=== PATIENT | female | born 1950 | race Caucasian/White ===

== ENCOUNTER → 2018-06-05 14:14 | Outpatient (CLI) | payer MEDICARE, SELFPAY ==
[2018-06-05 15:00] LABS: Absolute Neutrophil Count 3.6 X10^3/uL (2.0-7.7); Eosinophils% 1.9 % (0-5); Hematocrit 40.8 % (37-47); Hemoglobin 13.5 g/dl (12.0-15.0); Lymphocyte % 20.8 % (19-41); Mean Corp Hgb Conc 33.1 g/gl (32-36); Mean Corpuscular Volume 90.7 fL (81-99); Mean Platelet Vol. 11.1 fl (6.2-12.0); Monocyte# 0.46 X10^3/uL; Monocyte% 8.7 % (0-10); Neutrophil # 3.64 X10^3/uL (2.7-7.7); Neutrophil % 68.6 % (47-70); POSITIVE COUNT NO; POSITIVE DIFFERENTIAL NO; POSITIVE MORPHOLOGY NO; Platelet Count 225 K/mm3 (150-450); RBC Distribution Width CV 12.3 % (11.6-14.6); White Blood Count 5.3 K/mm3 (4.4-11.0)
[2018-06-05 15:30] LABS: ALB/GLOB Ratio 1.2 RATIO (0.9-2.4); AST(SGOT) 20 U/L (15-37); Alanine Aminotransfer ALT/SGPT 33 U/L (13-56); Albumin, Serum 3.7 g/dL (3.2-5.0); Alkaline Phosphatase 78 U/L (45-117); Anion Gap 8 (5-15); BUN 18 mg/dL (7-18); BUN/Creat Ratio 23.6 RATIO (10-20); Calcium,Total 9.2 mg/dL (8.5-10.1); Chloride 106 mmol/L (98-107); Creatinine, Serum 0.76 mg/dL (0.55-1.02); EST Glomerular Filtration Rate 80 mL/min (>60); Est Glom Filt Rate - Afr Amer 97 mL/min (>60); Globulin 3.2 g/dL (2.2-4.2); Glucose 91 mg/dL (74-106); Potassium 4.1 mmol/L (3.5-5.1); Protein, Total 6.9 g/dL (6.4-8.2); Sodium Level 139 mmol/L (136-145); Thyroid Stim Hormone (TSH) 2.01 uIU/mL (0.358-3.74)
== END ==
PROVIDERS: Family Provider Family Medicine Geriatric Medicine; PCP Family Medicine Geriatric Medicine; Visit Provider Family Medicine Geriatric Medicine
DX: I10 Essential (primary) hypertension (principal); E55.9 Vitamin D deficiency, unspecified
CPT/HCPCS: 36415; 80053; 82306; 84443; 85025

== ENCOUNTER → 2019-06-14 | Outpatient (CLI) | payer MEDICARE, SELFPAY ==
--- NOTE | 2019-06-14 12:45 | BI_ITS ---
MAMMOGRAPHY - BILATERAL SCREENING REASON FOR EXAM: Female, 68 years old. Routine annual screening examination. PERTINENT HISTORY: Non-contributory. TECHNIQUE: Digital bilateral breast stella (3D mammographic acquisition) in the CC and MLO projections. 2-D mediolateral oblique (MLO) and craniocaudad (CC) views of both breasts were obtained. CAD: Full Field Digital Mammography with Computer Added Detection was performed. COMPARISON: Comparison is made with prior study June 04, 2015 and February 20, 2014. FINDINGS: Breast Composition: The breasts are almost entirely fatty. There are no dominant masses or suspicious calcifications. No other significant abnormalities are identified. There has been no significant change since the prior study. BI/SCREEN MAMM (CAD) W/STELLA BILAT IMPRESSION: Stable bilateral screening mammogram. Yearly follow-up mammogram recommended. (A) ASSESSMENT CATEGORY: BIRADS Category 1: Negative. A letter regarding these results will be sent to the patient by the facility within 30 days. Approximately 10% of breast cancers are not detected by mammography. A normal mammogram should not delay biopsy of a clinically suspicious abnormality. [id number] Electronically Signed: Baudilio Garcia, at 15:04 EDT , Service support ,
--- NOTE | 2019-06-14 12:55 | BD_ITS ---
STUDY: DUAL ENERGY X-RAY ABSORPTIOMETRY / DXA REASON FOR EXAM: Female, 68 years old. The patient is postmenopausal. Loss of height. TECHNIQUE: Bone Mineral Density (BMD) measurements of lumbar spine and bilateral hips were obtained. COMPARISON: Comparison is made with prior examination dated April 20, 2016. FINDINGS: Lumbar Spine (L1-L4): g/cm2 (1.046) / T-score (-1.1) / Z-score (0.5) Findings are suggestive of osteopenia with a low fracture risk. Left Femur Total: g/cm2 (0.818) / T-score (-1.5) / Z-score (-0.1) Left Femoral Neck: g/cm2 (0.815) / T-score (-1.6) / Z-score (0.1) Right Femur Total: g/cm2 (0.837) / T-score (-1.4) / Z-score (0.1) Right Femoral Neck: g/cm2 (0.866) / T-score (-1.2) / Z-score (0.4) The T-Scores on the most recent prior examination were: Lumbar Spine (L1-L4): There has been worsening of bone density since the previous examination. Left Femur Total: which represents a worsening of 7.6%. Right Femur Total: which represents a worsening of 3.6%. BD/Dexa Bone Density Study IMPRESSION: The patient is considered osteopenic as outlined below according to World Akin Organization (WHO) criteria with a moderate fracture risk. There has been worsening of bone density since the previous examination. Reference Information: The T-score is the number of standard deviations above or below the standard which is normal for young adults at their peak bone mineral density. The World Health Organization (WHO) interprets the T-scores as follows: Above -1 Normal bone density Between -1 and -2.5 Osteopenia Equal to / or below -2.5 Osteoporosis As a practical clinical guideline, osteopenia may be graded as follows: Mild -1 through -1.5 Moderate -1.6 through -2.0 Severe -2.1 through -2.4 The Z-score is the number of standard deviations above or below age-matched controls. A Z-score of less than -1.5 would be considered abnormal. References: 1. NIH Osteoporosis and Related Bone Diseases http://www.osteo.org 2. International Society for Clinical Densitometry http://www.iscd.org 3. National Osteoporosis Foundation http://www.nof.org Electronically Signed: Baudilio Garcia, at 8:22 EDT , Service support ,
== END | disposition home or self-care (01) ==
LOC: OPBD 12:42
PROVIDERS: Family Provider Family Medicine Geriatric Medicine; PCP Family Medicine Geriatric Medicine; Referring Provider Family Medicine Geriatric Medicine; Visit Provider Family Medicine Geriatric Medicine
DX: Z78.0 Asymptomatic menopausal state (principal); Z12.31 Encounter for screening mammogram for malignant neoplasm of breast
CPT/HCPCS: 77063; 77067; 77080

== ENCOUNTER → 2019-06-18 | Outpatient (CLI) | payer MEDICARE, SELFPAY ==
[2017-04-10 05:22] VITALS: BMI 32.3
[2019-06-18 17:47] LABS: Absolute Lymphocyte Count 0.76 X10^3/uL (0.83-4.51); Absolute Neutrophil Count 3.7 X10^3/uL (2.0-7.7); Basophil# 0.01 X10^3/uL; Basophil% 0.2 % (0-1); Hematocrit 42.9 % (37-47); Hemoglobin 13.9 g/dL (12.0-15.0); Lymphocyte # 0.76 X10^3/ul (4.0); Lymphocyte % 14.6 % (19-41); Mean Corp Hgb Conc 32.4 g/dL (32-36); Mean Corpuscular Hgb 29.7 pg (27.0-32.0); Mean Corpuscular Volume 91.7 fL (81-99); Mean Platelet Vol. 11.1 fl (6.2-12.0); Monocyte# 0.73 X10^3/uL; Monocyte% 14.1 % (0-10); NRBC Flagged by Analyzer 0 % (0-5); Neutrophil # 3.67 X10^3/uL (2.7-7.7); Neutrophil % 70.7 % (47-70); Platelet Count 227 K/mm3 (150-450); RBC Distribution Width CV 12.4 % (11.6-14.6); RBC Distribution Width SD 41.2 fl (35.1-43.9); Red Blood Count 4.68 M/mm3 (4.2-5.4); White Blood Count 5.2 K/mm3 (4.4-11.0)
[2019-06-18 18:12] LABS: Vitamin D,25 Hydroxy 35.4 ng/mL (29.95-100.01)
[2019-06-18 18:24] LABS: ALB/GLOB Ratio 1.1 RATIO (0.9-2.4); AST(SGOT) 19 U/L (15-37); Alanine Aminotransfer ALT/SGPT 32 U/L (13-56); Albumin, Serum 3.8 g/dL (3.2-5.0); Alkaline Phosphatase 82 U/L (45-117); Anion Gap 6 (5-15); BUN 13 mg/dL (7-18); BUN/Creat Ratio 17.9 RATIO (10-20); Calcium,Total 9.5 mg/dL (8.5-10.1); Chloride 107 mmol/L (98-107); Creatinine, Serum 0.72 mg/dL (0.55-1.02); EST Glomerular Filtration Rate 85 mL/min (>60); Est Glom Filt Rate - Afr Amer 102 mL/min (>60); Globulin 3.5 g/dL (2.2-4.2); Glucose 81 mg/dL (74-106); Protein, Total 7.3 g/dL (6.4-8.2); Sodium Level 138 mmol/L (136-145); Thyroid Stim Hormone (TSH) 2.13 uIU/mL (0.358-3.74)
== END | disposition home or self-care (01) ==
LOC: POLAB3 14:01
PROVIDERS: Family Provider Family Medicine Geriatric Medicine; PCP Family Medicine Geriatric Medicine; Visit Provider Family Medicine Geriatric Medicine
DX: I10 Essential (primary) hypertension (principal); E55.9 Vitamin D deficiency, unspecified
CPT/HCPCS: 36415; 80053; 82306; 84443; 85025

== ENCOUNTER → 2020-06-23 | Outpatient (CLI) | payer MEDICARE, SELFPAY ==
[2017-04-10 05:22] VITALS: BMI 32.3
[2020-06-23 12:31] LABS: Absolute Lymphocyte Count 0.94 X10^3/uL (0.83-4.51); Absolute Neutrophil Count 3.4 X10^3/uL (2.0-7.7); Basophil# 0.01 X10^3/uL; Basophil% 0.2 % (0-1); Hematocrit 41.6 % (37-47); Hemoglobin 13.2 g/dL (12.0-15.0); Lymphocyte # 0.94 X10^3/ul (4.0); Lymphocyte % 18.7 % (19-41); Mean Corp Hgb Conc 31.7 g/dL (32-36); Mean Corpuscular Hgb 29.3 pg (27.0-32.0); Mean Corpuscular Volume 92.2 fL (81-99); Mean Platelet Vol. 11.3 fl (6.2-12.0); Monocyte# 0.64 X10^3/uL; Monocyte% 12.7 % (0-10); NRBC Flagged by Analyzer 0 % (0-5); Neutrophil # 3.43 X10^3/uL (2.7-7.7); Neutrophil % 68.2 % (47-70); Platelet Count 218 K/mm3 (150-450); RBC Distribution Width SD 41.3 fl (35.1-43.9); Red Blood Count 4.51 M/mm3 (4.2-5.4)
[2020-06-23 13:35] LABS: ALB/GLOB Ratio 1.1 RATIO (0.9-2.4); AST(SGOT) 17 U/L (15-37); Alanine Aminotransfer ALT/SGPT 24 U/L (13-56); Albumin, Serum 3.6 g/dL (3.2-5.0); Alkaline Phosphatase 67 U/L (45-117); Anion Gap 8 (5-15); BUN 20 mg/dL (7-18); BUN/Creat Ratio 23.7 RATIO (10-20); Calcium,Total 9.8 mg/dL (8.5-10.1); Chloride 110 mmol/L (98-107); Creatinine, Serum 0.84 mg/dL (0.55-1.02); EST Glomerular Filtration Rate 71 mL/min (>60); Est Glom Filt Rate - Afr Amer 86 mL/min (>60); Globulin 3.4 g/dL (2.2-4.2); Glucose 90 mg/dL (74-106); Potassium 4.2 mmol/L (3.5-5.1); Sodium Level 142 mmol/L (136-145); Thyroid Stim Hormone (TSH) 3.21 uIU/mL (0.358-3.74)
[2020-06-23 17:33] LABS: BNP,B-Type NATRIURETIC PEPTIDE 64.9 pg/mL (0-100)
[2020-06-23 17:39] LABS: Vitamin D,25 Hydroxy 26.6 ng/mL
[2020-06-25 15:12] LABS: G6PD Quant Test 250 (127-427)
== END | disposition home or self-care (01) ==
LOC: POLAB3 09:50
PROVIDERS: PCP Family Medicine Geriatric Medicine; Visit Provider Family Medicine Geriatric Medicine
DX: E55.9 Vitamin D deficiency, unspecified (principal); I10 Essential (primary) hypertension; E66.9 Obesity, unspecified; M62.81 Muscle weakness (generalized); R53.82 Chronic fatigue, unspecified; R68.82 Decreased libido
CPT/HCPCS: 36415; 80053; 82306; 82955; 83880; 84443; 85025

== ENCOUNTER → 2020-07-07 | Outpatient (CLI) | payer MEDICARE, SELFPAY | END | disposition home or self-care (01) | PROVIDERS: PCP Family Medicine Geriatric Medicine; Referring Provider Family Medicine Geriatric Medicine; Visit Provider Family Medicine Geriatric Medicine | DX: N39.0 Urinary tract infection, site not specified (principal) | CPT/HCPCS: 87086; 87088 ==

== ENCOUNTER → 2020-12-10 11:42 | Outpatient (CLI) | payer MEDICARE, SELFPAY ==
[2017-04-10 05:22] VITALS: BMI 32.3
[2020-12-10 12:45] LABS: Absolute Neutrophil Count 4.1 X10^3/uL (2.0-7.7); Basophil# 0.01 X10^3/uL; Basophil% 0.2 % (0-1); Hematocrit 44.6 % (37-47); Hemoglobin 14.2 g/dL (12.0-15.0); Mean Corp Hgb Conc 31.8 g/dL (32-36); Mean Corpuscular Hgb 29.2 pg (27.0-32.0); Mean Corpuscular Volume 91.6 fL (81-99); Monocyte% 11.1 % (0-10); NRBC Flagged by Analyzer 0 % (0-5); Neutrophil # 4.07 X10^3/uL (2.7-7.7); Neutrophil % 75.5 % (47-70); Platelet Count 209 K/mm3 (150-450); RBC Distribution Width CV 12.9 % (11.6-14.6); RBC Distribution Width SD 43.7 fl (35.1-43.9); Red Blood Count 4.87 M/mm3 (4.2-5.4); White Blood Count 5.4 K/mm3 (4.4-11.0)
[2020-12-10 13:00] LABS: Anion Gap 7 (5-15); BUN 10 mg/dL (7-18); BUN/Creat Ratio 15.6 RATIO (10-20); Calcium,Total 9.9 mg/dL (8.5-10.1); Chloride 107 mmol/L (98-107); Creatinine, Serum 0.64 mg/dL (0.55-1.02); EST Glomerular Filtration Rate 97 mL/min (>60); Est Glom Filt Rate - Afr Amer 117 mL/min (>60); Glucose 100 mg/dL (74-106); Potassium 3.9 mmol/L (3.5-5.1); Sodium Level 137 mmol/L (136-145)
== END ==
PROVIDERS: PCP Family Medicine Geriatric Medicine; Visit Provider Family Medicine Geriatric Medicine
DX: N20.0 Calculus of kidney (principal)
CPT/HCPCS: 36415; 80048; 85025; 87086

== ENCOUNTER → 2020-12-10 15:32 | Outpatient (CLI) | payer MEDICARE, SELFPAY ==
--- NOTE | 2020-12-10 15:47 | CT_ITS ---
STUDY: CT ABDOMEN AND PELVIS WITHOUT CONTRAST REASON FOR EXAM: Female, 70 years old. KIDNEY STONE RADIATION DOSAGE (If Supplied By Facility): CTDIvol = ( 9.03 ) mGy, DLP = ( 425.77 ) mGycm TECHNIQUE: Transaxial images were obtained from the dome of the diaphragm to the symphysis pubis without oral contrast, and without intravenous contrast. Sagittal and coronal images were reconstructed. Individualized dose optimization techniques were used for this CT. COMPARISON: None. FINDINGS: The visualized lung bases are unremarkable. Mild pericardial thickening. Normal liver. Cholelithiasis. No significant dilatation of the extrahepatic biliary system. Normal spleen. Normal pancreas. Normal bilateral adrenal glands. Punctate stone and multiple probable parapelvic cysts in the right kidney. Hydronephrosis of the left kidney with calculi. There is an obstructive stone at the left UPJ measuring 14 mm in maximum dimension. Possible parapelvic left renal cysts. There is a hiatal hernia. Normal small intestine. Diverticulosis of the colon. The appendix is visualized and appears normal. Calcified abdominal aorta. Normal inferior vena cava. Normal retroperitoneum. Mild wall thickening of the urinary bladder anteriorly. Normal abdominal wall. Mild degenerative vertebral changes with scoliosis. Mild compression of T11. CT/Abdomen/Pelvis without Cont IMPRESSION: Bilateral renal calculi and cysts. Hydronephrosis of the left kidney with an obstructive stone at the UPJ. Hiatal hernia. Colonic diverticulosis. Cholelithiasis. Mild pericardial thickening. Mild wall thickening of the urinary bladder. Electronically Signed: Yoshi Malhotra DO at 16:37 EDT Tel [phone], Service support ,
== END ==
PROVIDERS: PCP Family Medicine Geriatric Medicine; Referring Provider Family Medicine Geriatric Medicine; Visit Provider Family Medicine Geriatric Medicine
DX: N20.0 Calculus of kidney (principal); N39.0 Urinary tract infection, site not specified
CPT/HCPCS: 36415; 74176; 80048; 85025; 87086; 87088

== ENCOUNTER 2020-12-19 11:46 | Day surgery (SDC) | payer MEDICARE, SELFPAY ==
[2020-12-19] VITALS (7 sets, daily range): BP systolic 115–147; BP diastolic 60–77; PULSE 53–65; RESP 16; TEMP 36.5–37.5; O2SAT 100; BMI 25.2
[2020-12-19] MEDS: Lactated Ringers 1,000 ML 100 ML IV (12:36)
--- NOTE | 2020-12-19 13:45 | PCM.HP.STD ---
Problem List (1) Left ureteral calculus Status: Acute History of Present Illness Date of Admission: 12/19/20 Chief Complaint: Left ureteral calculi The patient is a 70 year old female with obstructing stone in the mid left ureter plan to proceed with shockwave lithotripsy and stent placement Past Medical History Allergies Sulfa (Sulfonamide Antibiotics) Allergy (Verified 12/19/20 12:36) Hives Ceomtdz-Abg-Whv Reductase Inhibitor Adverse Reaction (Verified 12/19/20 12:36) Pain in joints Home Medications: Ambulatory Orders Medication Instructions Recorded Atenolol 50 mg PO BID 04/10/17 Naproxen [Naprosyn] 500 mg PO BID PRN 12/17/20 Surgical History: no surgical history Smoking Status: Former smoker Review of Systems Constitutional: Denies: Chills, Fever, Weight Change HEENT: Denies: Head Aches, Sinus Congestion, Sinus Drainage Cardiovascular: Denies: Chest Pain, Palpitations Respiratory: Denies: Cough, Shortness of breath at rest, Sputum production Gastrointestinal: Denies: Abdominal Pain, Nausea, Vomiting Genitourinary: Denies: Dysuria Musculoskeletal: Denies: Joint Pain, Joint Tenderness Skin: Denies: Rash, Wounds Neurological: Denies: Numbness, Tingling, Focal weakness Psychiatric: Denies: Anxiety, Depression, Homicidal Ideations, Suicidal Ideations Hematologic/ Lymphatic: Denies: Easy Bruising, Easy Bleeding VTE Information - Inpt Only VTE Present on Admission: No - Physical Exam Vitals/I&O's: Vital Signs Temp Pulse Resp BP Pulse Ox 98.5 F 62 16 132/73 H 100 12/19/20 12:31 12/19/20 12:31 12/19/20 12:31 12/19/20 12:31 12/19/20 12:31 Oxygen Delivery Method Room Air Weight: 71 kg Body Mass Index (BMI) 25.2 General: Alert, Oriented x3, Cooperative HEENT: Atraumatic, PERRLA, EOMI, Normocephalic Neck: Supple, No JVD, Negative Carotid Bruits Lungs: Clear to auscultation, Normal air movement Cardiovascular: Regular rate, No murmurs Abdomen: Bowel Sounds Present, Soft, Non Tender Extremities: No edema, Capillary Refill Less than 3 Seconds Skin: No rashes, No breakdown Musculoskeletal: No Tenderness to Palpation of Joints or Extremities Neurological: Cranial nerves II-XII grossly intact Psych/Mental Status: Normal Affect, Appropriate Microbiology Past 72 Hours 12/18/20 13:05 Interface Orders SARS-CoV-2 Antigen (Rapid) - Final Current Medications Cefazolin Sodium 2 gm/ Sodium (Chloride) 110 mls @ 150 mls/hr IV PREOP ONE Stop: 12/19/20 14:38 Lactated Ringer's () 1,000 mls @ 100 mls/hr IV .Q10H SAY Last Admin: 12/19/20 12:36 Dose: 100 mls/hr Documented by: Assessment/Plan All Active Problems Left ureteral calculus (Acute) Plan for shockwave lithotripsy and left stent placement.
--- NOTE | 2020-12-19 13:49 | DCINST_ITS ---
Discharge Diet: Light diet - advance as tolerated Discharge Activity: Return to Normal Activity Allergies/Adverse Reactions: Allergies Sulfa (Sulfonamide Antibiotics) Allergy (Verified 12/19/20 12:36) Hives Mrqzfgz-Oee-Alk Reductase Inhibitor Adverse Reaction (Verified 12/19/20 12:36) Pain in joints Medications to take at Discharge Atenolol 50 mg PO BID 04/10/17 Naproxen [Naprosyn] 500 mg PO BID PRN 12/17/20 Ciprofloxacin [Cipro] 500 mg PO BID #6 tab 12/19/20 Hydrocodone Bitart/Apap 5-325 [[place] 5MG-325MG] 1 tablet PO Q4H PRN PRN 7 Days #14 tablet 12/19/20 The following prescriptions were given: Ciprofloxacin [Cipro] 500 mg PO BID #6 tab Transmission Status: Pending to [facility] Hydrocodone Bitart/Apap 5-325 [[place] 5MG-325MG] 1 tablet PO Q4H PRN PRN 7 Days #14 tablet PRN Reason: Pain Transmission Status: Sent to [facility] Primary Care Physician: Varun Ceballos Chi, MD [Primary Care Provider] - Test Results: Test results from this visit will be discussed in further detail at your follow- up appointment, if applicable. Please Follow Up With: Jhoan Amezcua MD When: please call to make an appointment.
[2020-12-19] MEDS: Cefazolin 2 GM in 0.9% Normal Saline 100 ML IV (13:55)
[2020-12-19] MEDS: Ketorolac 15 MG/ML Vial IV (15:05)
--- NOTE | 2020-12-19 15:24 | OP.PCM_ITS ---
Problem List (1) Left ureteral calculus Status: Acute Report of Operation Date of Procedure: 12/19/20 Pre-Operative Diagnosis: left renal calculi Post-Operative Diagnosis: same. Surgery/Procedure Performed:: cystoscopy and left stent placement., left ESWL Description of Surgical Findings:: Patient presents to the hospital for treatment of a kidney stone with shockwave lithotripsy. In the preoperative area and x-ray was done to confirm the location of the stone. The x-ray was reviewed and the stone location was reviewed. In the preoperative setting I spoke with the patient regarding the treatment of the stone how the treatment would be conducted and the expectations after surgery. The patient understands there is a risk of bleeding and infection. Also discussed the very rare risk of hematoma or damage to the kidney. We also discussed the risk that the shockwave machine will fail to break the stone adequately and that the patient may need other surgical procedures. We also discussed the possibility that the patient may need a stent after the procedure. After reviewing the procedure with the patient, the patient is signed the consent form all the patient's questions were addressed and was taken back to the operating room for treatment of a kidney stone. Patient was taken back to the operating room, patient was identified by the nursing staff, we identified the side of the treatment and the patient side of treatment had been marked by my initials. The patient underwent general anesthetic and was placed supine on the lithotripter table. The patient was placed in dorsolithotomy position. The urethra and genitals were prepped and draped in usual sterile fashion. Using a 21 Mongolian rigid cystourethroscope the entire length of the urethra was normal then went into the bladder. Identified the trigone the left and right ureteral orifice. I then cannulated the left orifice and advanced a wire up into the kidney. I then backloaded a 5 Mongolian open ended catheter over the wire and injected contrast to delineate the anatomy. After the retrograde was performed I then used fluoroscopic images and guidance to advanced a wire up into the kidney and over the 0.038 glidewire I advanced a 6 Mongolian by 24 cm double pigtail stent. I then pulled the 0.038 Glidewire off and the stent coiled in the kidney bladder good position. The bladder was then drained. We confirmed the position of the stent by fluoroscopy. We then positioned the patient under the lithotripter and we used triangulation technique to identify the location of the stone and then we made sure that the stone was engaged in the F2 focal point of F2 Donier lithoprior machine. Once the patient was positioned appropriately and the stone was identified and placed in the F2 focal point of the lithotripter machine we then proceeded with shockwave lithotripsy. In the beginning the shockwave was delivered at a rate of 90 shocks per minute, we monitor the EKG for any ectopy. The power was slowly increased to 5 kV and subsequently at the 7 kV. We then proceeded with the treatment we move the therapy had around during the treatment to make sure the stone stayed in the F2 focal point during the entire treatment. Once the stone had broken up completely then we stopped the treatment a total of about 3000 shockwaves were delivered to the stone under fluoroscopic guidance. At this point the patient's anesthetic was reversed patient was extubated and taken back to the PACU in stable condition. The patient was given instructions to call the office to make an a follow-up appointment. Type of Anesthesia:: General - Admit VTE Documentation VTE Present on Admission: No VTE Mechan Device Prophylaxis: SCD's
[2020-12-19] MEDS: HYDROcodone Bitartrate/Apap 5/325 Tablet PO (16:20)
[2020-12-19] MEDS: Ondansetron 4 MG/2 ML Vial IV (16:20)
== END 2020-12-19 17:08 | disposition home or self-care (01) ==
LOC: SDC 11:47 → AC 11:48
PROVIDERS: PCP Family Medicine Geriatric Medicine; Referring Provider Urology; Visit Provider Urology
PROC: (CPT 50590; principal; 2020-12-19 13:45)
DX: N20.0 Calculus of kidney (principal); I10 Essential (primary) hypertension; Z87.891 Personal history of nicotine dependence; Z79.899 Other long term (current) drug therapy; Z20.822 Contact with and (suspected) exposure to COVID-19
CPT/HCPCS: 00873; 50590; 52332; 87426; C9803; J7120; C1769; C2617; J2405

== ENCOUNTER → 2020-12-25 08:49 | Outpatient (CLI) | payer MEDICARE, SELFPAY ==
[2020-12-19 12:31] VITALS: BMI 25.2
--- NOTE | 2020-12-25 08:52 | RAD_ITS ---
STUDY: X-RAY - ABDOMEN/PELVIS REASON FOR EXAM: Female, 70 years old. S/p ESWL TECHNIQUE: Single AP view of the abdomen / pelvis. COMPARISON: None. FINDINGS: Normal visualized lung bases. There is an unremarkable bowel gas pattern. A left-sided double-J stent catheter is seen with the proximal tip in the left renal pelvis and the distal tip in the left side of the bladder. Findings suggestive of a 5.7 mm conquest in the midportion of the left kidney. Normal soft tissue structures. There are diffuse degenerative changes of the visualized lumbar spine. Mild dextroscoliosis. RAD/Abdomen Single View IMPRESSION: A left-sided double-J stent catheter is seen. Findings suggestive of a 5.7 mm calculus in the midportion of the left kidney. Electronically Signed: Baudilio Garcia MD at 12:54 EDT , Service support ,
== END ==
PROVIDERS: PCP Family Medicine Geriatric Medicine; Referring Provider Urology; Visit Provider Urology
DX: N20.0 Calculus of kidney (principal); N20.1 Calculus of ureter
CPT/HCPCS: 74018; 82360

== ENCOUNTER → 2020-12-30 | Outpatient (CLI) | payer MEDICARE, SELFPAY ==
[2020-12-19 12:31] VITALS: BMI 25.2
== END | disposition home or self-care (01) ==
LOC: LABSPEC 12:13
PROVIDERS: PCP Family Medicine Geriatric Medicine; Referring Provider Urology; Visit Provider Urology
DX: R19.7 Diarrhea, unspecified (principal)
CPT/HCPCS: 87493

== ENCOUNTER → 2021-01-08 11:48 | Outpatient (CLI) | payer MEDICARE, SELFPAY ==
[2020-12-19 12:31] VITALS: BMI 25.2
--- NOTE | 2021-01-08 12:00 | RAD_ITS ---
STUDY: X-RAY - ABDOMEN/PELVIS REASON FOR EXAM: Female, 70 years old. Diarrhea for 10 days. TECHNIQUE: Single AP view of the abdomen / pelvis. COMPARISON: None. FINDINGS: Normal visualized lung bases. There is an unremarkable bowel gas pattern. No evidence of small bowel dilatation or obstruction There is no demonstrated free abdominal air. The visualized liver, spleen and kidneys are grossly normal in size and morphology. There are calcified phleboliths in the pelvis. . Degenerative changes and dextroscoliosis of the lumbar spine. RAD/Abd Inc Decub and/or Erect IMPRESSION: No evidence of acute intra-abdominal or pelvic process. Electronically Signed: Michael Castro DO at 22:34 EDT Tel [phone], Service support ,
== END ==
PROVIDERS: PCP Family Medicine Geriatric Medicine; Referring Provider Family Medicine Geriatric Medicine; Visit Provider Family Medicine Geriatric Medicine
DX: R19.7 Diarrhea, unspecified (principal)
CPT/HCPCS: 74019

== ENCOUNTER → 2021-01-09 | Outpatient (CLI) | payer MEDICARE, SELFPAY ==
[2020-12-19 12:31] VITALS: BMI 25.2
== END | disposition home or self-care (01) ==
LOC: LAB 08:58 → LABSPEC 09:01
PROVIDERS: PCP Family Medicine Geriatric Medicine; Referring Provider Family Medicine Geriatric Medicine; Visit Provider Family Medicine Geriatric Medicine
DX: R19.7 Diarrhea, unspecified (principal)
CPT/HCPCS: 82274; 83630; 87177; 87209; 87493; 87506

== ENCOUNTER → 2021-01-19 15:09 | Outpatient (CLI) | payer MEDICARE, SELFPAY ==
[2020-12-19 12:31] VITALS: BMI 25.2
--- NOTE | 2021-01-19 15:11 | BI_ITS ---
MAMMOGRAPHY - BILATERAL SCREENING REASON FOR EXAM: Female, 70 years old. Routine annual screening examination. PERTINENT HISTORY: Non-contributory. TECHNIQUE: Digital bilateral breast stella (3D mammographic acquisition) in the CC and MLO projections. 2-D mediolateral oblique (MLO) and craniocaudad (CC) views of both breasts were obtained. CAD: Full Field Digital Mammography with Computer Added Detection was performed. COMPARISON: Comparison is made with prior study dated 06/14/2019 and 06/04/2015. FINDINGS: Breast Composition: The breasts are almost entirely fatty. There are no dominant masses or suspicious calcifications. No other significant abnormalities are identified. There has been no significant change since the prior study. BI/SCRN MAMM (CAD)W/STELLA BILAT IMPRESSION: Stable bilateral screening mammogram. Yearly follow-up mammogram recommended. (A) ASSESSMENT CATEGORY: BIRADS Category 1: Negative. A letter regarding these results will be sent to the patient by the facility within 30 days. Approximately 10% of breast cancers are not detected by mammography. A normal mammogram should not delay biopsy of a clinically suspicious abnormality. [id number] Electronically Signed: Baudilio Garcia MD at 8:15 EDT , Service support ,
== END ==
PROVIDERS: PCP Family Medicine Geriatric Medicine; Referring Provider Family Medicine Geriatric Medicine; Visit Provider Family Medicine Geriatric Medicine
DX: Z12.31 Encounter for screening mammogram for malignant neoplasm of breast (principal)
CPT/HCPCS: 77063; 77067

== ENCOUNTER → 2021-02-09 | Outpatient (CLI) | payer MEDICARE, SELFPAY ==
[2020-12-19 12:31] VITALS: BMI 25.2
== END | disposition home or self-care (01) ==
LOC: LABSPEC 08:39
PROVIDERS: PCP Family Medicine Geriatric Medicine; Referring Provider Family Medicine Geriatric Medicine; Visit Provider Family Medicine Geriatric Medicine
DX: K92.1 Melena (principal)
CPT/HCPCS: 82274

== ENCOUNTER → 2021-02-13 14:38 | Outpatient (CLI) | payer MEDICARE, SELFPAY ==
[2020-12-19 12:31] VITALS: BMI 25.2
--- NOTE | 2021-02-13 14:45 | CT_ITS ---
STUDY: CT ABDOMEN AND PELVIS WITHOUT CONTRAST REASON FOR EXAM: Female, 70 years old. Recent lithotripsy of the left ureter. Pain. RADIATION DOSAGE (If Supplied By Facility): CTDIvol = ( 6.87 ) mGy, DLP = ( 329.75 ) mGycm TECHNIQUE: Transaxial images were obtained from the dome of the diaphragm to the symphysis pubis without oral contrast, and without intravenous contrast. Sagittal and coronal images were reconstructed. Individualized dose optimization techniques were used for this CT. COMPARISON: Comparison is made with prior examination of 12/10/2020. FINDINGS: The visualized lung bases are unremarkable. Coronary artery calcification. Minimal degree of pericardial thickening. This is unchanged. Normal liver. I suspect a small amount of sludge along the dependent portion of the gallbladder lumen. Normal spleen. Normal pancreas. Normal bilateral adrenal glands. Stable right lateral parapelvic cysts. The previously seen 14 mm calculus at the left ureteropelvic junction is not seen at this time. There is a moderate hiatal hernia. Normal small intestine. There are multiple colonic diverticula consistent with diverticulosis. The appendix is visualized and appears normal. There is diffuse atherosclerotic calcification of the abdominal aorta, without a demonstrated aneurysm. Normal inferior vena cava. Normal retroperitoneum. Diffuse bladder wall thickening more prominent anteriorly although the bladder is not completely distended at this time. Normal abdominal wall. There are mild degenerative changes of the visualized lumbar spine. Stable loss of height of the T11 vertebrae. CT/Abdomen/Pelvis without Cont IMPRESSION: Stable bilateral parapelvic cysts. The previously seen calculus in the left ureteropelvic junction is not seen at this time. Electronically Signed: Baudilio Garcia MD at 15:07 EDT , Service support ,
== END ==
PROVIDERS: PCP Family Medicine Geriatric Medicine; Referring Provider Urology; Visit Provider Urology
DX: N20.1 Calculus of ureter (principal)
CPT/HCPCS: 74176

== ENCOUNTER → 2021-06-24 09:58 | Outpatient (CLI) | payer MEDICARE, SELFPAY ==
[2021-06-24 12:16] LABS: Absolute Lymphocyte Count 0.88 X10^3/uL (0.83-4.51); Absolute Neutrophil Count 3.5 X10^3/uL (2.0-7.7); Hematocrit 42.1 % (37-47); Hemoglobin 13.8 g/dL (12.0-15.0); Lymphocyte # 0.88 X10^3/ul (0.83-4.51); Lymphocyte % 17.9 % (19-41); Mean Corp Hgb Conc 32.8 g/dL (32-36); Mean Corpuscular Hgb 29.9 pg (27.0-32.0); Mean Corpuscular Volume 91.3 fL (81-99); Mean Platelet Vol. 11.2 fl (6.2-12.0); Monocyte% 10.2 % (0-10); NRBC Flagged by Analyzer 0 % (0-5); Neutrophil # 3.52 X10^3/uL (2.7-7.7); Neutrophil % 71.7 % (47-70); Platelet Count 232 K/mm3 (150-450); RBC Distribution Width CV 12.1 % (11.6-14.6); RBC Distribution Width SD 40.5 fl (35.1-43.9); Red Blood Count 4.61 M/mm3 (4.2-5.4); White Blood Count 4.9 K/mm3 (4.4-11.0)
[2021-06-24 13:21] LABS: Vitamin D,25 Hydroxy 31.8 ng/mL
[2021-06-24 13:27] LABS: ALB/GLOB Ratio 0.9 RATIO (0.9-2.4); AST(SGOT) 19 U/L (15-37); Alanine Aminotransfer ALT/SGPT 22 U/L (13-56); Albumin, Serum 3.4 g/dL (3.2-5.0); Alkaline Phosphatase 72 U/L (45-117); Anion Gap 10 (5-15); BUN 14 mg/dL (7-18); BUN/Creat Ratio 17.9 RATIO (10-20); Calcium,Total 9.3 mg/dL (8.5-10.1); Chloride 110 mmol/L (98-107); Creatinine, Serum 0.78 mg/dL (0.55-1.02); EST Glomerular Filtration Rate 77 mL/min (>60); Est Glom Filt Rate - Afr Amer 93 mL/min (>60); Globulin 3.6 g/dL (2.2-4.2); Glucose 88 mg/dL (74-106); Potassium 4.2 mmol/L (3.5-5.1); Sodium Level 141 mmol/L (136-145); Thyroid Stim Hormone (TSH) 2.67 uIU/mL (0.358-3.74)
== END ==
PROVIDERS: PCP Family Medicine Geriatric Medicine; Visit Provider Family Medicine Geriatric Medicine
DX: E55.9 Vitamin D deficiency, unspecified (principal); I10 Essential (primary) hypertension
CPT/HCPCS: 36415; 80053; 82306; 84443; 85025

== ENCOUNTER → 2022-06-30 | Outpatient (CLI) | payer MEDICARE, SELFPAY ==
[2022-06-30 11:27] LABS: Absolute Lymphocyte Count 0.93 X10^3/uL (0.83-4.51); Absolute Neutrophil Count 2.7 X10^3/uL (2.0-7.7); Hematocrit 41.5 % (37-47); Hemoglobin 14.2 g/dL (12.0-15.0); Lymphocyte # 0.93 X10^3/ul (0.83-4.51); Mean Corp Hgb Conc 34.2 g/dL (32-36); Mean Corpuscular Hgb 30.7 pg (27.0-32.0); Mean Corpuscular Volume 89.6 fL (81-99); Mean Platelet Vol. 11.6 fl (6.2-12.0); Monocyte# 0.44 X10^3/uL; Monocyte% 10.9 % (0-10); NRBC Flagged by Analyzer 0 % (0-5); Neutrophil # 2.66 X10^3/uL (2.7-7.7); Neutrophil % 65.9 % (47-70); Platelet Count 196 K/mm3 (150-450); RBC Distribution Width SD 39.4 fl (35.1-43.9); Red Blood Count 4.63 M/mm3 (4.2-5.4)
[2022-06-30 11:42] LABS: Vitamin D,25 Hydroxy 40.4 ng/mL
[2022-06-30 11:50] LABS: ALB/GLOB Ratio 1.1 RATIO (0.9-2.4); AST(SGOT) 19 U/L (15-37); Alanine Aminotransfer ALT/SGPT 26 U/L (13-56); Albumin, Serum 3.6 g/dL (3.2-5.0); Alkaline Phosphatase 69 U/L (45-117); Anion Gap 7 (5-15); BUN 16 mg/dL (7-18); BUN/Creat Ratio 19.6 RATIO (10-20); Calcium,Total 9.4 mg/dL (8.5-10.1); Chloride 111 mmol/L (98-107); Creatinine, Serum 0.82 mg/dL (0.55-1.02); EST Glomerular Filtration Rate 73 mL/min (>60); Est Glom Filt Rate - Afr Amer 88 mL/min (>60); Globulin 3.3 g/dL (2.2-4.2); Glucose 107 mg/dL (74-106); Potassium 4.1 mmol/L (3.5-5.1); Protein, Total 6.9 g/dL (6.4-8.2); Sodium Level 141 mmol/L (136-145); Thyroid Stim Hormone (TSH) 3.42 uIU/mL (0.358-3.74)
== END | disposition home or self-care (01) ==
LOC: POLAB3 09:38
PROVIDERS: PCP Family Medicine Geriatric Medicine; Visit Provider Family Medicine Geriatric Medicine
DX: I10 Essential (primary) hypertension (principal); E55.9 Vitamin D deficiency, unspecified
CPT/HCPCS: 36415; 80053; 82306; 84443; 85025

== ENCOUNTER 2023-01-31 09:05 | Emergency (ER) | payer MEDICARE, SELFPAY ==
[2023-01-31 09:05] VITALS: BP 156/88; PULSE 68; RESP 16; TEMP 36.4; O2SAT 100; BMI 27.7
[2023-01-31 09:14] VITALS: BP 162/83; PULSE 74; RESP 21; O2SAT 100
--- NOTE | 2023-01-31 09:15 | EKG12_ITS ---
Test Reason : CP Blood Pressure : / mmHG Vent. Rate : 064 BPM Atrial Rate : 064 BPM P-R Int : 160 ms QRS Dur : 092 ms QT Int : 394 ms P-R-T Axes : 015 -02 004 degrees QTc Int : 406 ms Normal sinus rhythm Moderate voltage criteria for LVH, may be normal variant ( R in aVL , [place] product ) Borderline ECG Confirmed by ANISH CHOUDHURY, MELISA ([id number]), material expeditor VY DE LA CRUZ ([id number]) on 02/02/2023 9:13:49 AM Referred By: LAUREL Confirmed By:MELISA OCONNELL MD
--- NOTE | 2023-01-31 09:16 | ED.VIS.CHEST ---
HPI History of Present Illness Chief Complaint: Chest Pain Narrative Narrative: Patient is currently asymptomatic. For the past week she has woken up and had 1 or 2-minute episodes of chest pain when she was laying down and improved when she sat up. Today she had total of 3 episodes each happen when she was laying down. She has no exertional component. No pleuritic component. She has no back pain or tearing sensation. She has no shortness of breath. No lower extremity edema or calf pain. No recent fevers or chills. PFSH PFSH Home Medications atenolol 50 mg tablet 50 mg PO BID 04/10/17 [History Last Taken 12/19/20 06:00] [place] 3 01/31/23 [History Last Taken Unknown] PreserVision AREDS 01/31/23 [History Last Taken Unknown] Probiotic 01/31/23 [History Last Taken Unknown] Allergy/AdvReac Type Severity Reaction Status Date / Time Sulfa (Sulfonamide Allergy Hives Verified 01/31/23 09:08 Antibiotics) Sgprfuf-EOI-JuG Reductase AdvReac Pain in Verified 01/31/23 09:08 Inhibitor joints [Toectic-Nkk-Fgl Reductase Inhibitor] Social History Smoking Status: Former smoker ROS ROS ED ROS Narrative Past medical history: Reviewed, mostly hypertension. Medications: Reviewed Social history: Noncontributory Review of systems: All systems negative except as indicated General: No fever Eyes: No visual changes ENT: No upper airway congestion, normal voice Neck: No neck pain Cardiovascular: Chest pain as in HPI. Respiratory: No shortness of breath or cough Gastrointestinal: No abdominal pain, nausea vomiting or diarrhea Musculoskeletal: Denies myalgias no difficulty with ambulation EXAM Physical Exam Narrative Exam Narrative: Physical exam General: Well nourished, Well developed, No Acute Distress Head: Normocephalic, Atraumatic Eyes: Conjunctiva not pale ENT: Moist mucous membranes Neck: Supple, Nontender, No lymphadenopathy Cardiovascular: Regular rate, Regular rhythm Respiratory: No distress, CTA bilaterally Abdomen: Soft, Nontender, Nondistended Back: Nontender, Normal Inspection. Negative for: CVA tenderness Extremities: Nontender, No edema Skin: Normal color, No rash Neurological: Alert, Normal Strength, Normal Sensation Psychological: Normal affect Const Vital Signs: 01/31/23 09:05 01/31/23 09:14 01/31/23 09:25 Temperature 97.5 F L Temperature Source Temporal Pulse Rate 68 74 Respiratory Rate 16 21 H Blood Pressure 156/88 H 162/83 H Blood Pressure Mean 110 109 Pulse Ox 100 100 97 Oxygen Delivery Method Room Air Room Air Room Air Heart Score History: Slightly/Non-Suspicious ECG: Normal Age: >/= 65 years Risk Factors: 1 or 2 Risk Factors Troponin: </= Normal Limit Score: 3 MDM MDM MDM Narrative Medical decision making narrative: I discussed the patient with who is in the room who gave me some of the history. Patient has a heart score of 3 and a normal cardiac work-up. Both troponins are within normal limit. According to this hospital guideline and my clinical impression I believe she has thoroughly been worked up for an acute ME. She can follow-up with her PCP. I do not believe the patient has any signs or symptoms of PE or any other thromboembolic etiologies. I am not worried about esophageal rupture since its been intermittent pain. I am also not worried about pancreatitis or any, gallbladder disease. She could have gastritis as her etiology. Independent interpretation of test Telemetry: Sinus rhythm with a rate of 64 without ectopy. Lab Data Labs: Laboratory Results - last 24 hr 01/31/23 01/31/23 01/31/23 09:20 09:20 11:25 WBC 6.2 RBC 4.92 Hgb 14.5 Hct 45.2 MCV 91.9 MCH 29.5 MCHC 32.1 RDW Std Deviation 41.9 RDW Coeff of Vijay 12.5 Plt Count 228 MPV 10.7 Immature Gran % (Auto) 0.500 Neut % (Auto) 81.6 H Lymph % (Auto) 11.2 L [place] % (Auto) 6.5 Eos % (Auto) 0.0 Baso % (Auto) 0.2 Absolute Neuts (auto) 5.1 Absolute Lymphs (auto) 0.69 L Nucleated RBC % 0 Sodium 142 Potassium 4.1 Chloride 110 H Carbon Dioxide 25.0 Anion Gap 7 BUN 13 Creatinine 0.78 Estim Creat Clear Calc 46.90 Est GFR (MDRD) Af Amer 93 Est GFR (MDRD) Non-Af 77 BUN/Creatinine Ratio 16.7 Glucose 112 H Calcium 9.7 Troponin I High Sens 16 16 Radiography Chest X-Ray - ED: 1 View, Read by ED Physician, Normal, Heart, Lungs, Mediastinum and Bony Structures Diagnostic Testing: Clinical Impression(s) from Imaging Studies Chest X-Ray 01/31/23 09:20 IMPRESSION: No acute abnormality is seen. Small hiatal hernia. Electronically Signed: Baudilio Garcia MD at 9:58 EDT , EKG Initial EKG: Comments: Normal sinus rhythm with a rate of 64. Normal GA and QTc intervals. T wave inversions in lead III, aVF and V1 as well as V2 however unchanged from January 22, 2010. Discharge Plan Triage Chief Complaint: Chest Pain ED Provider: Kashmir Camejo Dx/Rx/DC Orders Clinical Impression: Chest pain, Hypertension Instructions: ED Chest Pain, Uncertain Cause Prescriptions: No Action atenolol 50 MG tablet 50 mg PO BID [place] 3 PreserVision AREDS Probiotic Primary Care Provider: Varun Ceballos Chi Referrals: Varun Ceballos Chi, MD [Primary Care Provider] - 3-5 Days Disposition Disposition: Home, Self Care
--- NOTE | 2023-01-31 09:20 | RAD_ITS ---
STUDY: X-RAY CHEST REASON FOR EXAM: Female, 72 years old. Chest pain TECHNIQUE: Single AP portable view of the chest. COMPARISON: Comparison is made with prior study dated April 10, 2017. FINDINGS: EKG electrodes are seen. Hyperinflation. The lungs are clear. There is no demonstrated pleural abnormality. Normal size heart. Normal mediastinum and briseyda. Normal visualized pulmonary arteries. There is atherosclerotic calcification of the aortic arch with tortuosity. There are diffuse degenerative changes of the visualized thoracic spine. Normal visualized ribs, clavicles, and shoulders. Small hiatal hernia. RAD/Chest 1 View (Portable) IMPRESSION: No acute abnormality is seen. Small hiatal hernia. Electronically Signed: Baudilio Garcia MD at 9:58 EDT ,
[2023-01-31 09:25] VITALS: O2SAT 97
[2023-01-31] MEDS: Aspirin 81 MG TAB.CHEW 162 MG PO (09:27)
--- NOTE | 2023-01-31 09:28 | ED.RN ---
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 Dr. Camejo orders 2 baby ASA now to be given.
[2023-01-31 09:34] LABS: Absolute Lymphocyte Count 0.69 X10^3/uL (0.83-4.51); Absolute Neutrophil Count 5.1 X10^3/uL (2.0-7.7); Basophil# 0.01 X10^3/uL; Basophil% 0.2 % (0-1); Hematocrit 45.2 % (37-47); Hemoglobin 14.5 g/dL (12.0-15.0); Lymphocyte # 0.69 X10^3/ul (0.83-4.51); Lymphocyte % 11.2 % (19-41); Mean Corp Hgb Conc 32.1 g/dL (32-36); Mean Corpuscular Hgb 29.5 pg (27.0-32.0); Mean Corpuscular Volume 91.9 fL (81-99); Mean Platelet Vol. 10.7 fl (6.2-12.0); Monocyte% 6.5 % (0-10); NRBC Flagged by Analyzer 0 % (0-5); Neutrophil # 5.05 X10^3/uL (2.7-7.7); Neutrophil % 81.6 % (47-70); Platelet Count 228 K/mm3 (150-450); RBC Distribution Width CV 12.5 % (11.6-14.6); RBC Distribution Width SD 41.9 fl (35.1-43.9); Red Blood Count 4.92 M/mm3 (4.2-5.4); White Blood Count 6.2 K/mm3 (4.4-11.0)
[2023-01-31 09:58] LABS: Anion Gap 7 (5-15); BUN 13 mg/dL (7-18); BUN/Creat Ratio 16.7 RATIO (10-20); Calcium,Total 9.7 mg/dL (8.5-10.1); Chloride 110 mmol/L (98-107); Creatinine, Serum 0.78 mg/dL (0.55-1.02); EST Glomerular Filtration Rate 77 mL/min (>60); Est Glom Filt Rate - Afr Amer 93 mL/min (>60); Glucose 112 mg/dL (74-106); Potassium 4.1 mmol/L (3.5-5.1); Sodium Level 142 mmol/L (136-145); Troponin-I HS (w/2H Reflex) 16 pg/mL (3.0-54.0)
[2023-01-31 11:28] LABS: Reflex Troponin-HS? (from REC) Y
[2023-01-31 11:49] LABS: Troponin-I HS 16 pg/mL (3.0-54.0)
== END 2023-01-31 12:20 | disposition home or self-care (01) ==
PROVIDERS: Emergency Provider Emergency Medicine; PCP Family Medicine Geriatric Medicine; Visit Provider Emergency Medicine
DX: R07.9 Chest pain, unspecified (principal); I10 Essential (primary) hypertension; Z87.891 Personal history of nicotine dependence
CPT/HCPCS: 71045; 80048; 84484; 85025; 93005; 99284

== ENCOUNTER 2023-02-15 13:48 | Emergency (ER) | payer MEDICARE, SELFPAY ==
[2023-02-15 13:48] VITALS: BP 118/106; PULSE 77; RESP 18; TEMP 35.9; O2SAT 98; BMI 27.6
--- NOTE | 2023-02-15 14:09 | CT_ITS ---
STUDY: CT ABDOMEN AND PELVIS WITHOUT CONTRAST REASON FOR EXAM: Female, 72 years old. LT FLANK PAIN SINCE TUESDAY, HTN, DIVERTICULITIS, [place] RADIATION DOSAGE (If Supplied By Facility): CTDIvol = ( 12.83 ) mGy, DLP = ( 609.01 ) mGycm TECHNIQUE: Transaxial images were obtained from the dome of the diaphragm to the symphysis pubis without oral contrast, and without intravenous contrast. Sagittal and coronal images were reconstructed. Individualized dose optimization techniques were used for this CT. COMPARISON: CT of abdomen and pelvis dated February 13, 2021. Chest x-ray dated January 31, 2023 FINDINGS: Linear atelectasis is present in the left lower lobe with a small pleural effusion. Lobe. The visualized portions of the heart are within normal limits. Normal liver. There are multiple gallstones. Normal spleen. Normal pancreas. Normal bilateral adrenal glands. Moderate left hydronephrosis and hydroureter present with a recently passed stone measuring 9.8 mm in the distal left ureter a few millimeters proximal to the UVJ. A 3 mm stone is present in the midpole calyx of the left kidney. A 1 mm punctate stone is present in the posterior calyx and midpole of the left kidney as well. Mild to moderate left perinephric stranding and edema is also present. Multiple parapelvic cysts are present in both kidneys. A 5 mm stone is present in the calyceal UPJ region of the right kidney, however no right hydronephrosis is present on the current study. There is a small to moderate-sized hiatal hernia. Normal small intestine. Significant diverticulosis of the distal transverse colon, descending colon and although a down to the rectosigmoid colon redemonstrated. No active inflammation is seen.. There is non-visualization of the appendix. Normal abdominal aorta. Normal inferior vena cava. Normal retroperitoneum. Normal urinary bladder. Unremarkable uterus and adnexa. Normal abdominal wall. There are diffuse degenerative changes of the visualized lumbar spine. CT/Abdomen/Pelvis without Cont IMPRESSION: 1. Left kidney: Moderate left hydronephrosis and hydroureter present with a recently passed stone measuring 9.8 mm in the distal left ureter a few millimeters proximal to the UVJ. A 3 mm stone is present in the midpole calyx of the left kidney. A 1 mm punctate stone is present in the posterior calyx and midpole of the left kidney as well. Mild to moderate left perinephric stranding and edema is also present. Multiple parapelvic cysts are present in both kidneys. 2. Right kidney: 5 mm nonobstructing stone at the calyceal UPJ junction 3. Gallstones 4. Significant colonic diverticulosis Electronically Signed: Romero Thakkar MD at 15:51 EDT ,
--- NOTE | 2023-02-15 14:13 | EDS_ITS ---
HPI History of Present Illness Chief Complaint: Flank Pain Informant: patient Onset/Context/Timing Onset: Yesterday Context: Gradual Onset Timing: Waxes and wanes Current Severity: Moderate Maximum Severity: Severe Narrative Narrative: Patient presents secondary to left flank pain. She does have a history of kidney stones and states this pain feels similar. She has required surgery for her kidney stones in the past and has been followed by Dr. Amezcua. She reports this episode started yesterday morning and has been waxing and waning. She did have nausea and vomiting secondary to pain. She denies dysuria but does have some hematuria. [facility] Medical History Diverticulitis Kidney stone Home Medications atenolol 50 mg tablet 50 mg PO BID 04/10/17 [History Last Taken 12/19/20 06:00] [place] 3 01/31/23 [History Last Taken Unknown] PreserVision AREDS 01/31/23 [History Last Taken Unknown] Probiotic 01/31/23 [History Last Taken Unknown] hydrocodone-acetaminophen 5-325mg 5mg-325mg 1 tab PO Q6H PRN PRN Pain 3 days #10 TABLETS 02/15/23 [Rx Last Taken Unknown] ibuprofen 400 mg tablet 400 mg PO Q8H #10 tabs 02/15/23 [Rx Last Taken Unknown] ondansetron 4 mg disintegrating tablet 4 mg PO Q8H PRN PRN Nausea #10 tabs 02/15/23 [Rx Last Taken Unknown] tamsulosin 0.4 mg capsule (Flomax) 0.4 mg PO DAILY #7 caps 02/15/23 [Rx Last Taken Unknown] Allergy/AdvReac Type Severity Reaction Status Date / Time Sulfa (Sulfonamide Allergy Hives Verified 01/31/23 09:08 Antibiotics) Vyuaezr-KEH-ViX Reductase AdvReac Pain in Verified 01/31/23 09:08 Inhibitor joints [Qagjhva-Ybe-Jlx Reductase Inhibitor] Social History Smoking Status: Former smoker ROS ROS ED Constitutional Constitutional ED: Denies chills or fever(s) Eyes Eyes: Denies change in vision or discharge from eye(s) ENT ENT ED: Denies discharge from eye(s) or sore throat Cardiovascular Cardiovascular: Denies chest pain Respiratory/Chest Respiratory/Chest: Denies cough or dyspnea Gastrointestinal Gastrointestinal: Reports abdominal pain, nausea and vomiting; Denies diarrhea Genitourinary Genitourinary ED: Denies difficulty urinating or dysuria Musculoskeletal Musculoskeletal: Reports back pain; Denies extremity pain Integumentary Denies Abrasions or rash Neurologic Neurologic: Denies headache(s) or weakness Psychiatric Psychiatric: Denies anxiety or depression Endocrine Endocrinology: Denies polydipsia or polyuria Allergic/Immunologic Allergic/Immunologic ED: Denies lip swelling or urticaria EXAM Physical Exam Const Vital Signs: 02/15/23 13:48 02/15/23 13:54 Temperature 96.6 F L Temperature Source Temporal Pulse Rate 77 Respiratory Rate 18 Respiratory Pattern Normal Blood Pressure 118/106 H Blood Pressure Mean 110 Pulse Ox 98 Oxygen Delivery Method Room Air Positive well nourished and well developed General Appearance ED: well developed HEENT Reports normocephalic and head/scalp atraumatic Eyes PERRL and EOMs intact bilaterally Neck supple Chest Wall inspection of chest normal and palpation of chest normal Resp normal respiratory effort and clear to auscultation bilaterally Cardio regular rate and regular rhythm GI non-tender Auscultation: hypoactive bowel sounds Palpation: soft Back/Spine no CVA tenderness Extremity normal to inspection Neuro oriented x3 and no sensory deficits noted Sensorium / Orientation: alert Motor Exam: strength 5/5 throughout Psych mental status grossly normal Skin no rashes or lesions noted MDM MDM MDM Narrative Medical decision making narrative: Patient is given morphine, Toradol, Zofran, IV fluids. Labwork obtained to evaluate for leukocytosis, anemia, and electrolyte derangement. Urinalysis obtained to evaluate for infection/hematuria. CT flank obtained to evaluate for kidney stone size and location. Lab Data Attestation: I reviewed the patient's lab results. Labs: Laboratory Results - last 24 hr 02/15/23 02/15/23 02/15/23 14:00 14:00 14:35 WBC 12.2 H RBC 4.56 Hgb 13.4 Hct 40.2 MCV 88.2 MCH 29.4 MCHC 33.3 RDW Std Deviation 39.6 RDW Coeff of Vijay 12.2 Plt Count 222 MPV 11.0 Immature Gran % (Auto) 0.500 Neut % (Auto) 87.0 H Lymph % (Auto) 4.6 L [place] % (Auto) 7.8 Eos % (Auto) 0.0 Baso % (Auto) 0.1 Absolute Neuts (auto) 10.6 H Absolute Lymphs (auto) 0.56 L Nucleated RBC % 0 Sodium 138 Potassium 4.0 Chloride 107 Carbon Dioxide 23.0 Anion Gap 8 BUN 14 Creatinine 1.16 H Estim Creat Clear Calc 40.44 Est GFR (MDRD) Af Amer 59 L Est GFR (MDRD) Non-Af 49 L BUN/Creatinine Ratio 12.1 Glucose 119 H Calcium 9.9 Urine Color Yellow Urine Clarity Clear Urine pH 5.0 Ur Specific [place] 1.025 Urine Protein 30 H Urine Glucose (UA) Normal Urine Ketones Negative Urine Occult Blood 250 H Urine Nitrite Negative Urine Bilirubin Negative Urine Urobilinogen 1 H Ur Leukocyte Esterase 500 H Urine RBC 50-100 SEEN Urine WBC 50-100 SEEN Ur Squamous Epith Cells 0-5 SEEN Urine Bacteria RARE Urine Mucus 0 SEEN Radiography Diagnostic Testing: Clinical Impression(s) from Imaging Studies Abdomen/Pelvis CT 02/15/23 14:09 IMPRESSION: 1. Left kidney: Moderate left hydronephrosis and hydroureter present with a recently passed stone measuring 9.8 mm in the distal left ureter a few millimeters proximal to the UVJ. A 3 mm stone is present in the midpole calyx of the left kidney. A 1 mm punctate stone is present in the posterior calyx and midpole of the left kidney as well. Mild to moderate left perinephric stranding and edema is also present. Multiple parapelvic cysts are present in both kidneys. 2. Right kidney: 5 mm nonobstructing stone at the calyceal UPJ junction 3. Gallstones 4. Significant colonic diverticulosis Electronically Signed: Romero Thakkar MD at 15:51 EDT , Treatment and Re-Evaluation :: On repeat evaluation patient is resting more comfortably. CBC reveals a white count of 12.2 with 87% neutrophils. Hemoglobin is normal at 13.4. Chemistry studies unremarkable. Creatinine is 1.16. Urinalysis reveals 50-100 red cells and 50-100 white cells, however rare bacteria are noted. This is likely reactive from her kidney stone and does not represent a true infection. CT of the flank read by radiology reveals a 9.8 mm stone in the distal left ureter. Although they document the patient has a recently passed stone, they comment that the stone is a few millimeters proximal to the UVJ. Patient will be treated with analgesics, antiemetics, and Flomax. She will call Dr. Amezcua for follow-up. Return instructions were given and she is comfortable with this plan. Discharge Plan Triage Chief Complaint: Flank Pain ED Provider: Bhavya Tejada Dx/Rx/DC Orders Clinical Impression: Left ureteral calculus Instructions: ED Kidney Stone w/ Colic Prescriptions: New ibuprofen 400 mg tablet 400 mg PO Q8H Qty: 10 0RF hydrocodone-acetaminophen 5-325 mg tablet 1 tab PO Q6H PRN PRN (Reason: Pain) 3 Days Qty: 10 0RF ondansetron 4 mg tablet,disintegrating 4 mg PO Q8H PRN PRN (Reason: Nausea) Qty: 10 0RF tamsulosin [Flomax] 0.4 mg capsule 0.4 mg PO DAILY Qty: 7 0RF No Action atenolol 50 MG tablet 50 mg PO BID [place] 3 PreserVision AREDS Probiotic Primary Care Provider: Varun Ceballos Chi Referrals: Jhoan Amezcua MD [Med Staff - Active Staff] - 3-5 Days if not improving Varun Ceballos Chi, MD [Primary Care Provider] - Disposition Disposition: Home, Self Care
[2023-02-15 14:30] LABS: Absolute Lymphocyte Count 0.56 X10^3/uL (0.83-4.51); Absolute Neutrophil Count 10.6 X10^3/uL (2.0-7.7); Basophil# 0.01 X10^3/uL; Basophil% 0.1 % (0-1); Hematocrit 40.2 % (37-47); Hemoglobin 13.4 g/dL (12.0-15.0); Lymphocyte # 0.56 X10^3/ul (0.83-4.51); Lymphocyte % 4.6 % (19-41); Mean Corp Hgb Conc 33.3 g/dL (32-36); Mean Corpuscular Hgb 29.4 pg (27.0-32.0); Mean Corpuscular Volume 88.2 fL (81-99); Monocyte# 0.95 X10^3/uL; Monocyte% 7.8 % (0-10); NRBC Flagged by Analyzer 0 % (0-5); Neutrophil # 10.64 X10^3/uL (2.7-7.7); POSITIVE DIFFERENTIAL YES; Platelet Count 222 K/mm3 (150-450); RBC Distribution Width CV 12.2 % (11.6-14.6); RBC Distribution Width SD 39.6 fl (35.1-43.9); Red Blood Count 4.56 M/mm3 (4.2-5.4); White Blood Count 12.2 K/mm3 (4.4-11.0)
[2023-02-15 14:31] LABS: Differential Indicated SCAN CRITERIA MET
[2023-02-15] MEDS: 0.9% Normal Saline 1,000 ML 150 ML IV (14:36)
[2023-02-15] MEDS: Ondansetron 4 MG/2 ML Vial IV (14:36)
[2023-02-15] MEDS: Ketorolac 15 MG/ML Vial IV (14:36)
[2023-02-15] MEDS: Morphine 4 MG/ML Syringe IV (14:37)
[2023-02-15 14:40] LABS: Mucous, Urine 0 SEEN /hpf (<or=2+)
[2023-02-15 14:44] LABS: Anion Gap 8 (5-15); BUN 14 mg/dL (7-18); BUN/Creat Ratio 12.1 RATIO (10-20); Calcium,Total 9.9 mg/dL (8.5-10.1); Chloride 107 mmol/L (98-107); Creatinine, Serum 1.16 mg/dL (0.55-1.02); EST Glomerular Filtration Rate 49 mL/min (>60); Est Glom Filt Rate - Afr Amer 59 mL/min (>60); Estimated Creatinine Clearance 40.44 ml/min; Glucose 119 mg/dL (74-106); Sodium Level 138 mmol/L (136-145)
[2023-02-15 14:51] LABS: Glucose, Dipstick Normal (Normal); Ketone-Dipstick Negative (Negative); Leukocyte Esterase-Dipstick 500 /ul (Negative); Nitrite-Dipstick Negative (Negative); Occult Blood-Urine 250 /ul (Negative); Protein-Dipstick 30 mg/dl (Negative); Specific Gravity, Urine 1.025 (1.002-1.030); Urine Bilirubin Dipstick Negative (Negative); Urine Urobilinogen 1 mg/dl (Normal)
[2023-02-15 15:10] LABS: Color, Urine Yellow (Yellow); Urine Clarity Clear (Clear)
[2023-02-15 15:23] LABS: Red Blood Cells-Urine 50-100 SEEN /hpf (0-5); White Blood Cells 50-100 SEEN /hpf (0-5)
[2023-02-15 15:24] LABS: Squamous Epithelial Cells - UA 0-5 SEEN /hpf (5-10)
[2023-02-15 15:26] LABS: Bacteria RARE /hpf (None Seen)
[2023-02-15 16:34] VITALS: BP 131/69; PULSE 75; RESP 16; O2SAT 95
== END 2023-02-15 16:42 | disposition home or self-care (01) ==
PROVIDERS: Emergency Provider Emergency Medicine; PCP Family Medicine Geriatric Medicine; Visit Provider Emergency Medicine
DX: N13.2 Hydronephrosis with renal and ureteral calculous obstruction (principal); Z87.891 Personal history of nicotine dependence; R31.9 Hematuria, unspecified; Z87.442 Personal history of urinary calculi; Z79.899 Other long term (current) drug therapy
CPT/HCPCS: 74176; 80048; 81001; 85025; 96361; 96374; 96375; 99282; J7030; A4216; J2405

== ENCOUNTER → 2023-05-24 | Outpatient (CLI) | payer MEDICARE, SELFPAY ==
--- NOTE | 2023-05-24 12:30 | RAD_ITS ---
STUDY: X-RAY - ABDOMEN/PELVIS REASON FOR EXAM: Female, 72 years old. OTHER DORSALGIA TECHNIQUE: Single AP view of the abdomen / pelvis. COMPARISON: 02/15/2023. FINDINGS: Normal visualized lung bases. 9 mm calcification in the left pelvis which could represent a distal ureteral stone. 5 mm calcification to the right of L3 which could be a right ureteral stone. There is an unremarkable bowel gas pattern. There is no demonstrated free abdominal air. The visualized liver, spleen and kidneys are grossly normal in size and morphology. Normal soft tissue structures. There are diffuse degenerative changes of the visualized lumbar spine. Mild dextroconvex scoliosis. RAD/Abdomen Single View IMPRESSION: Possible mid right ureteral and distal left ureteral stones. Electronically Signed: Emmanuel Stuart MD at 17:15 EDT ,
== END | disposition home or self-care (01) ==
LOC: RAD 12:27
PROVIDERS: PCP Family Medicine Geriatric Medicine; Referring Provider Urology; Visit Provider Urology
DX: M54.89 Other dorsalgia (principal)
CPT/HCPCS: 74018

== ENCOUNTER → 2023-05-27 | Outpatient (CLI) | payer MEDICARE, SELFPAY ==
--- NOTE | 2023-05-27 09:48 | CT_ITS ---
STUDY: CT ABDOMEN AND PELVIS WITHOUT CONTRAST REASON FOR EXAM: Female, 72 years old. KIDNEY STONE PROTOCOL-RIGHT FLANK PAIN RADIATION DOSAGE (If Supplied By Facility): CTDIvol = ( 9.14 ) mGy, DLP = ( 438.18 ) mGycm TECHNIQUE: Transaxial images were obtained from the dome of the diaphragm to the symphysis pubis without oral contrast, and without intravenous contrast. Sagittal and coronal images were reconstructed. Individualized dose optimization techniques were used for this CT. COMPARISON: Comparison is made with prior study dated February 15, 2023. FINDINGS: The visualized lung bases are unremarkable. Coronary artery calcification. Minimal pericardial thickening. Normal liver. Multiple small gallstones are seen along the dependent portion of the gallbladder lumen. Normal spleen. Normal pancreas. Normal bilateral adrenal glands. There is a 4.3 mm calculus at the right ureteropelvic junction. Mild degree of right hydronephrosis. Parapelvic renal cysts. Tiny nonobstructive intrarenal calculus. Left parapelvic cysts. Nonobstructive tiny left intrarenal calculus. There is a moderate-sized hiatal hernia. Normal small intestine. There are multiple colonic diverticula consistent with diverticulosis. The appendix is visualized and appears normal. There is diffuse atherosclerotic calcification of the abdominal aorta, without a demonstrated aneurysm. Normal inferior vena cava. Normal retroperitoneum. Normal urinary bladder. Stable calcifications seen in the left adnexa. Normal abdominal wall. There are degenerative changes of the visualized lumbar spine. CT/Abdomen/Pelvis without Cont IMPRESSION: Mild right hydronephrosis due to a 4.3 mm calculus at the right ureteropelvic junction. Bilateral parapelvic cysts. Nonobstructive bilateral intrarenal calculi. Multiple small gallstones. Electronically Signed: Baudilio Garcia MD at 14:40 EDT ,
== END | disposition home or self-care (01) ==
LOC: CT 09:47
PROVIDERS: PCP Family Medicine Geriatric Medicine; Referring Provider Urology; Visit Provider Urology
DX: N20.1 Calculus of ureter (principal)
CPT/HCPCS: 74176

== ENCOUNTER 2023-06-15 08:41 | Day surgery (SDC) | payer MEDICARE, SELFPAY ==
[2023-06-15] VITALS (7 sets, daily range): BP systolic 130–155; BP diastolic 71–98; PULSE 65–70; RESP 16–18; TEMP 36.1–37; O2SAT 94–100; BMI 27.3
[2023-06-15] MEDS: Lactated Ringers 1,000 ML 15 ML IV (09:13)
[2023-06-15] MEDS: Cefazolin 2 GM in 0.9% Normal Saline (100mL Bag) 100 ML IV (10:59)
--- NOTE | 2023-06-15 10:59 | HP.PCM_ITS ---
HPI - General General Date of Service: 06/15/23 Chief Complaint: Right ureteral calculi HPI Narrative SHAWN HOANG, is a 72 F who presents for laser lithotripsy of a stone in the mid right ureter and stent placement [facility] Medical History (Updated 06/15/23 @ 10:[address] Jhoan Amezcua MD) Alcohol use Diverticulitis Former smoker Gastric reflux History of pain when walking History of stress test Hypertension Kidney stone Leg cramps Wears contact lenses Home Medications atenolol 50 mg tablet 50 mg PO BID 04/10/17 [History Last Taken 06/15/23] [place] 3 2 tab PO DAILY 01/31/23 [History Last Taken Unknown] PreserVision AREDS 1 tab PO DAILY 01/31/23 [History Last Taken Unknown] ibuprofen 400 mg tablet 400 mg PO Q8H #10 tabs 02/15/23 [Rx Last Taken Unknown] Lactobacillus acidophilus 10 billion cell capsule (Probacap) 100 mmu cells PO DAILY 06/02/23 [History Last Taken Unknown] chlorpheniramine maleate 4 mg tablet (Aller-Chlor) 4 mg PO Q4H PRN allergy symptoms 06/02/23 [History Last Taken Unknown] famotidine 40 mg tablet 40 mg PO PRN 06/02/23 [History Last Taken 06/15/23] cephalexin 500 mg capsule 500 mg PO TID #15 caps 06/15/23 [Rx Last Taken Unk nown] oxycodone 5 mg tablet 5 mg PO Q6H PRN pain 7 days #10 tabs 06/15/23 [Rx Last Taken Unknown] phenazopyridine 100 mg tablet (Pyridium) 100 mg PO TID #14 tabs 06/15/23 [Rx Last Taken Unknown] tamsulosin 0.4 mg capsule (Flomax) 0.4 mg PO DAILY #14 caps 06/15/23 [Rx Last Taken Unknown] Allergy/AdvReac Type Severity Reaction Status Date / Time Sulfa (Sulfonamide Allergy Hives Verified 06/15/23 09:02 Antibiotics) ciprofloxacin [From Cipro] AdvReac Intermediate Diarrhea Verified 06/15/23 09:02 Ohdguxa-WUZ-EcL Reductase AdvReac Pain in Verified 06/15/23 09:02 Inhibitor joints [Qgnnpwp-Spb-Qio Reductase Inhibitor] Surgical History (Updated 06/02/23 @ 10:16 by Mayra Galeas) History of cystoscopy Hx of bilateral cataract extraction Hx of eye surgery Social History Smoking Status: Former smoker Vital Signs Vital Signs Vital Signs: 06/15/23 09:03 06/15/23 09:03 Temperature 97.3 F L Temperature Source Temporal Pulse Rate 65 Respiratory Rate 18 Respiratory Pattern Normal Blood Pressure 136/80 H Blood Pressure Mean 98 Blood Pressure Source Monitor Blood Pressure Position Semi-Fowlers Blood Pressure Location Right Arm Pulse Ox 100 Oxygen Delivery Method Room Air Weight Weight: 77 kg Body Mass Index (BMI) 27.3
--- NOTE | 2023-06-15 11:00 | PCM.DC ---
Discharge Instructions Diet Discharge Diet: No restrictions Activity Discharge Activity: Return to Normal Activity and May Not Drive (while taking narcotic pain medications.) Dressing / Incision Call your doctor if you observe: Fever of 101 or Higher Follow Up Care Please Follow Up With: Jhoan Amezcua MD When: Call [phone] for an appointment Test Results: Test results from this visit will be discussed in further detail at your follow-up appointment, if applicable. Discharge Plan Admission Primary Reason for Your Visit: laser of stone right. Attending Provider: Jhoan Amezcua Primary Care Provider: Varun Ceballos Chi Discharge Orders/Prescriptions Prescriptions: New tamsulosin [Flomax] 0.4 mg capsule 0.4 mg PO DAILY Qty: 14 0RF phenazopyridine [Pyridium] 100 mg tablet 100 mg PO TID Qty: 14 0RF cephalexin 500 mg capsule 500 mg PO TID Qty: 15 0RF oxycodone 5 mg tablet 5 mg PO Q6H PRN (Reason: pain) 7 Days Qty: 10 0RF Continued atenolol 50 MG tablet 50 mg PO BID [place] 3 2 tab PO DAILY PreserVision AREDS 1 tab PO DAILY ibuprofen 400 mg tablet 400 mg PO Q8H Qty: 10 0RF famotidine 40 mg tablet 40 mg PO PRN Patient Comments: take 1 tablet by mouth at bedtime chlorpheniramine maleate [Aller-Chlor] 4 mg tablet 4 mg PO Q4H PRN (Reason: allergy symptoms) Probacap 10 billion cell capsule 100 mmu cells PO DAILY Referrals / Follow Up: Jhoan Amezcua MD [Med Staff - Active Staff] - Varun Ceballos Chi, MD [Primary Care Provider] - Disposition Disposition (needs filled in before D/C Order can be placed): Home, Self Care
--- NOTE | 2023-06-15 11:32 | OP.PCM_ITS ---
Report of Operation Date of Procedure: 06/15/23 Pre-Operative Diagnosis: Right ureteral calculi proximal Post-Operative Diagnosis: Same Surgery/Procedure Performed:: Cystoscopy, right ureteroscopy laser lithotripsy of stone and stent placement, right retrograde pyelogram Description of Surgical Findings:: Indications a 72-year-old female seen in the office she is having gross hematuria and some mild right flank pain x-ray demonstrated a stone in the proximal ureter CAT scan confirmed this. She now presents for treatment of the stone with laser lithotripsy. Patient was taken back to the operating room and after induction of anesthesia she was placed in dorsolithotomy position the urethrovaginal area prepped and draped in usual sterile fashion went of the bladder with a 21 Bulgarian rigid cystourethroscope cannulated the left ureter orifice with a Glidewire over the Glidewire we then went with a 7 [place] flexible Olympus ureteroscope was able to get up the ureter easily and then encountered the stone in the left UPJ area I then used a 270 ?m laser fiber perform laser lithotripsy on the small fragment that was there and then inspected the upper pole midpole lower pole of the kidney there was no other fragments performed a retrograde pyelogram through the cystoscope put a wire up into the kidney backloaded off the wire and backloaded onto the wire with the scope and then advanced the stent over the wire the stent coiled in the kidney and bladder good position left the string on the stent but I did cut it short to prevent early extraction drained the bladder patient had esthesia was reversed and taken back to PACU in good condition we will see her next week for a cystoscopy stent removal Surgeon: Jhoan Amezcua Type of Anesthesia: General Drains: stent Estimated Blood Loss (mL): 0 Admit VTE Documentation VTE Present on Admission: No VTE Mechan Device Prophylaxis: SCD's VTE Pharm Prophylaxis ordered?: No
[2023-06-15] MEDS: Ketorolac 15 MG/ML Vial IV (12:30)
== END 2023-06-15 14:02 | disposition home or self-care (01) ==
LOC: SDC 08:41 → AC 08:43
PROVIDERS: PCP Family Medicine Geriatric Medicine; Referring Provider Urology; Visit Provider Urology
PROC: 0TJ98ZZ Inspection of Ureter, Via Natural or Artificial Opening Endoscopic (ICD-10-PCS; CPT 52352; principal; 2023-06-15 10:30)
DX: N20.1 Calculus of ureter (principal); I10 Essential (primary) hypertension; Z87.891 Personal history of nicotine dependence; Z87.442 Personal history of urinary calculi; Z79.899 Other long term (current) drug therapy
CPT/HCPCS: 52356; 00918; 76000; J7120; C2617; J2405

== ENCOUNTER → 2023-07-06 | Outpatient (CLI) | payer MEDICARE, SELFPAY ==
[2023-07-06 12:14] LABS: Absolute Lymphocyte Count 0.92 X10^3/uL (0.83-4.51); Absolute Neutrophil Count 3.3 X10^3/uL (2.0-7.7); Hematocrit 41.3 % (37-47); Hemoglobin 13.1 g/dL (12.0-15.0); Lymphocyte # 0.92 X10^3/ul (0.83-4.51); Lymphocyte % 19.8 % (19-41); Mean Corp Hgb Conc 31.7 g/dL (32-36); Mean Corpuscular Hgb 29.3 pg (27.0-32.0); Mean Corpuscular Volume 92.4 fL (81-99); Mean Platelet Vol. 10.7 fl (6.2-12.0); Monocyte# 0.41 X10^3/uL; Monocyte% 8.8 % (0-10); NRBC Flagged by Analyzer 0 % (0-5); Neutrophil % 71.2 % (47-70); Platelet Count 253 K/mm3 (150-450); RBC Distribution Width CV 12.4 % (11.6-14.6); RBC Distribution Width SD 42.1 fl (35.1-43.9); Red Blood Count 4.47 M/mm3 (4.2-5.4); White Blood Count 4.6 K/mm3 (4.4-11.0)
[2023-07-06 12:18] LABS: Vitamin D,25 Hydroxy 36.8 ng/mL
[2023-07-06 12:27] LABS: AST(SGOT) 19 U/L (15-37); Alanine Aminotransfer ALT/SGPT 37 U/L (13-56); Albumin, Serum 3.5 g/dL (3.2-5.0); Alkaline Phosphatase 90 U/L (45-117); Anion Gap 6 (5-15); BUN 18 mg/dL (7-18); BUN/Creat Ratio 22.4 RATIO (10-20); Calcium,Total 9.2 mg/dL (8.5-10.1); Chloride 112 mmol/L (98-107); EST Glomerular Filtration Rate 74 mL/min (>60); Est Glom Filt Rate - Afr Amer 90 mL/min (>60); Globulin 3.6 g/dL (2.2-4.2); Glucose 98 mg/dL (74-106); Potassium 4.2 mmol/L (3.5-5.1); Protein, Total 7.1 g/dL (6.4-8.2); Sodium Level 141 mmol/L (136-145)
== END | disposition home or self-care (01) ==
LOC: POLAB3 09:53
PROVIDERS: PCP Family Medicine Geriatric Medicine; Visit Provider Family Medicine Geriatric Medicine
DX: I10 Essential (primary) hypertension (principal); E55.9 Vitamin D deficiency, unspecified
CPT/HCPCS: 36415; 80053; 82306; 84443; 85025

== ENCOUNTER → 2023-07-26 | Outpatient (CLI) | payer MEDICARE, SELFPAY ==
--- NOTE | 2023-07-26 10:35 | BI_ITS ---
MAMMOGRAPHY - BILATERAL SCREENING REASON FOR EXAM: Female, 72 years old. Routine annual screening examination. PERTINENT HISTORY: Non-contributory. TECHNIQUE: Digital bilateral breast stella (3D mammographic acquisition) in the CC and MLO projections. 2-D mediolateral oblique (MLO) and craniocaudad (CC) views of both breasts were obtained. CAD: Full Field Digital Mammography with Computer Added Detection was performed. COMPARISON: Comparison is made with prior examination of January 19, 2021 and June 14, 2019. FINDINGS: Breast Composition: The breasts are almost entirely fatty. There are no dominant masses or suspicious calcifications. No other significant abnormalities are identified. There has been no significant change since the prior study. BI/SCRN MAMM (CAD)W/STELLA BILAT IMPRESSION: Stable bilateral screening mammogram. Yearly follow-up mammogram recommended. (A) ASSESSMENT CATEGORY: BIRADS Category 1: Negative. A letter regarding these results will be sent to the patient by the facility within 30 days. Approximately 10% of breast cancers are not detected by mammography. A normal mammogram should not delay biopsy of a clinically suspicious abnormality. [id number] Electronically Signed: Baudilio Garcia MD at 15:18 EST ,
== END | disposition home or self-care (01) ==
LOC: OPBI 10:34
PROVIDERS: PCP Family Medicine Geriatric Medicine; Referring Provider Family Medicine Geriatric Medicine; Visit Provider Family Medicine Geriatric Medicine
DX: Z12.31 Encounter for screening mammogram for malignant neoplasm of breast (principal)
CPT/HCPCS: 77063; 77067

== ENCOUNTER → 2024-02-07 | Outpatient (CLI) | payer MEDICARE, SELFPAY ==
--- NOTE | 2024-02-07 12:55 | RAD_ITS ---
INDICATION: CALCULUS OF KIDNEY EXAMINATION/TECHNIQUE: X-RAY - XR Abdomen 1 View COMPARISON: May 24, [address] dated May 27, 2023 FINDINGS: BOWEL GAS PATTERN: Non-obstructive. No bowel or stomach distention. FREE AIR: Not assessed on a single supine view. ORGANOMEGALY: Not seen. CALCIFICATIONS: There are no calcifications visualized within the expected region of the kidneys. There are stable phleboliths within the pelvis left of midline. LOWER CHEST: No acute pathology. BONES AND SOFT TISSUES: There are degenerative changes of the lumbar spine. RAD/Abdomen Single View IMPRESSION: Non-obstructive bowel gas pattern. No renal calculi identified. Electronically Signed: Gali Whaley MD at 11:55 EDT ,
== END | disposition home or self-care (01) ==
PROVIDERS: PCP Family Medicine Geriatric Medicine; Referring Provider Urology; Visit Provider Urology
DX: N20.0 Calculus of kidney (principal); N20.1 Calculus of ureter
CPT/HCPCS: 74018; 82360

== ENCOUNTER → 2024-06-12 | Outpatient (CLI) | payer MEDICARE, SELFPAY ==
[2024-06-12 13:06] LABS: Absolute Lymphocyte Count 0.76 X10^3/uL (0.83-4.51); Absolute Neutrophil Count 3.6 X10^3/uL (2.0-7.7); Hematocrit 42.6 % (37-47); Hemoglobin 13.9 g/dL (12.0-15.0); Lymphocyte # 0.76 X10^3/ul (0.83-4.51); Lymphocyte % 15.6 % (19-41); Mean Corp Hgb Conc 32.6 g/dL (32-36); Mean Corpuscular Hgb 29.6 pg (27.0-32.0); Mean Corpuscular Volume 90.6 fL (81-99); Mean Platelet Vol. 10.8 fl (6.2-12.0); Monocyte# 0.52 X10^3/uL; Monocyte% 10.7 % (0-10); NRBC Flagged by Analyzer 0 % (0-5); Neutrophil # 3.58 X10^3/uL (2.7-7.7); Neutrophil % 73.5 % (47-70); Platelet Count 201 K/mm3 (150-450); RBC Distribution Width CV 12.7 % (11.6-14.6); RBC Distribution Width SD 42.1 fl (35.1-43.9); White Blood Count 4.9 K/mm3 (4.4-11.0)
[2024-06-12 13:23] LABS: ALB/GLOB Ratio 1.1 RATIO (0.9-2.4); AST(SGOT) 12 U/L (15-37); Alanine Aminotransfer ALT/SGPT 24 U/L (13-56); Albumin, Serum 3.7 g/dL (3.2-5.0); Alkaline Phosphatase 80 U/L (45-117); Anion Gap 3 (5-15); BUN 16 mg/dL (7-18); BUN/Creat Ratio 22.2 RATIO (10-20); Calcium,Total 10.2 mg/dL (8.5-10.1); Chloride 110 mmol/L (98-107); Creatinine, Serum 0.72 mg/dL (0.55-1.02); EST Glomerular Filtration Rate 84 mL/min (>60); Est Glom Filt Rate - Afr Amer 102 mL/min (>60); Globulin 3.4 g/dL (2.2-4.2); Glucose 100 mg/dL (74-106); Potassium 4.3 mmol/L (3.5-5.1); Protein, Total 7.1 g/dL (6.4-8.2); Sodium Level 140 mmol/L (136-145)
[2024-06-12 13:37] LABS: International Normalized Ratio 1.1
== END | disposition home or self-care (01) ==
LOC: LAB 12:11
PROVIDERS: PCP Family Medicine Geriatric Medicine; Referring Provider Family Medicine Geriatric Medicine; Visit Provider Family Medicine Geriatric Medicine
DX: Z01.818 Encounter for other preprocedural examination (principal); R07.9 Chest pain, unspecified; I10 Essential (primary) hypertension
CPT/HCPCS: 36415; 80053; 85025; 85610

== ENCOUNTER → 2024-09-12 | Outpatient (CLI) | payer MEDICARE, SELFPAY ==
[2024-09-12 10:17] LABS: Absolute Lymphocyte Count 0.83 X10^3/uL (0.83-4.51); Absolute Neutrophil Count 4.7 X10^3/uL (2.0-7.7); Basophil# 0.01 X10^3/uL; Basophil% 0.2 % (0-1); Eosinophil# 0.01 X10^3/uL; Eosinophils% 0.2 % (0-5); Hematocrit 41.2 % (37-47); Hemoglobin 13.4 g/dL (12.0-15.0); Lymphocyte # 0.83 X10^3/ul (0.83-4.51); Lymphocyte % 13.7 % (19-41); Mean Corp Hgb Conc 32.5 g/dL (32-36); Mean Corpuscular Hgb 29.5 pg (27.0-32.0); Mean Corpuscular Volume 90.7 fL (81-99); Mean Platelet Vol. 10.8 fl (6.2-12.0); Monocyte# 0.53 X10^3/uL; Monocyte% 8.7 % (0-10); NRBC Flagged by Analyzer 0 % (0-5); Neutrophil # 4.68 X10^3/uL (2.7-7.7); Neutrophil % 76.9 % (47-70); Platelet Count 220 K/mm3 (150-450); RBC Distribution Width CV 12.6 % (11.6-14.6); Red Blood Count 4.54 M/mm3 (4.2-5.4); White Blood Count 6.1 K/mm3 (4.4-11.0)
[2024-09-12 11:03] LABS: AST(SGOT) 15 U/L (15-37); Alanine Aminotransfer ALT/SGPT 15 U/L (13-56); Albumin, Serum 3.7 g/dL (3.2-5.0); Alkaline Phosphatase 99 U/L (45-117); Anion Gap 7 (5-15); BUN 13 mg/dL (7-18); BUN/Creat Ratio 16.9 RATIO (10-20); Calcium,Total 10.1 mg/dL (8.5-10.1); Chloride 110 mmol/L (98-107); Creatinine, Serum 0.77 mg/dL (0.55-1.02); EST Glomerular Filtration Rate 78 mL/min (>60); Est Glom Filt Rate - Afr Amer 94 mL/min (>60); Globulin 3.6 g/dL (2.2-4.2); Glucose 89 mg/dL (74-106); Potassium 4.2 mmol/L (3.5-5.1); Protein, Total 7.3 g/dL (6.4-8.2); Sodium Level 141 mmol/L (136-145)
[2024-09-12 11:26] LABS: Vitamin D,25 Hydroxy 28.7 ng/mL
== END | disposition home or self-care (01) ==
LOC: POLAB3 10:08
PROVIDERS: PCP Family Medicine Geriatric Medicine; Visit Provider Family Medicine Geriatric Medicine
DX: I10 Essential (primary) hypertension (principal); E55.9 Vitamin D deficiency, unspecified
CPT/HCPCS: 36415; 80053; 82306; 84443; 85025

== ENCOUNTER → 2024-10-12 | Outpatient (CLI) | payer MEDICARE, SELFPAY ==
--- NOTE | 2024-10-12 12:31 | BI_ITS ---
PROCEDURE: SCRN MAMM (CAD)W/STELLA BILAT REASON FOR EXAM: F, Age 73 y/o, presents for annual screening mammogram. There is no family history of breast cancer. TECHNIQUE: Bilateral screening digital breast tomosynthesis with 2D and 3D images. Computer aided detection. COMPARISON: 07/26/2023, 01/19/2021 FINDINGS: The breasts are almost entirely fatty. No suspicious masses, areas of developing architectural distortion, or suspicious calcifications. BI/SCRN MAMM (CAD)W/STELLA BILAT IMPRESSION: There is no mammographic evidence of malignancy in either breast. BI-RADS 1: NEGATIVE. RECOMMEND ANNUAL MAMMOGRAPHIC SCREENING. Follow-up code: Routine Follow-up The patient will be notified of the results by letter. Reading Location: [id number]
== END | disposition home or self-care (01) ==
LOC: OPBI 12:29
PROVIDERS: PCP Family Medicine Geriatric Medicine; Referring Provider Family Medicine Geriatric Medicine; Visit Provider Family Medicine Geriatric Medicine
DX: Z12.31 Encounter for screening mammogram for malignant neoplasm of breast (principal)
CPT/HCPCS: 77063; 77067